=== PATIENT | male | born 1990 | race Caucasian/White ===

== ENCOUNTER 2017-12-20 15:09 | Emergency (ER) | payer SELFPAY ==
[~2017-12-20] VITALS: Ht 175.3 cm; Wt 76.7 kg
--- NOTE | 2017-12-20 17:15 | NUR ---
Pt was not found in ER lobby.
--- NOTE | 2017-12-20 18:15 | NUR ---
Pt not found in ER waiting room.
== END 2017-12-20 18:47 | disposition left against medical advice (07) ==
LOC: ER 15:09
DX: Z53.21 Procedure and treatment not carried out due to patient leaving prior to being seen by health care provider (principal)
CPT/HCPCS: A4663

== ENCOUNTER 2017-12-20 23:30 | Emergency (ER) | payer OTHER ==
[~2017-12-20] VITALS: Ht 175.3 cm; Wt 76.7 kg
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
--- NOTE | 2017-12-21 00:08 | NUR ---
ERINN PERALTA AT [facility] FOR [facility].
[2017-12-21] MEDS ORDERED: LORAZEPAM 0.5 MG TABLET PO ONE (00:15)
[2017-12-21] MEDS ORDERED: LORAZEPAM 1 MG TABLET ONE (00:15)
--- NOTE | 2017-12-21 00:17 | NUR ---
Patient discharged to home in stable conditon. Written and verbal after care instructions given. Patient verbalizes understanding of instructions. Provided resources for follow up care for mental health. Pt ambulated from ER w/ steady gait.
[2017-12-21 00:20] VITALS: BP 108/74
== END 2017-12-21 00:21 | disposition home or self-care (01) ==
LOC: ER 23:35
DX: F41.1 Generalized anxiety disorder (principal); F15.10 Other stimulant abuse, uncomplicated; F32.9 Major depressive disorder, single episode, unspecified
CPT/HCPCS: A4663